=== PATIENT | female | born 2005 | race African-American/Black ===

== ENCOUNTER 2024-06-21 16:18 | Emergency (ER) | payer MEDICAID ==
[~2024-06-21] VITALS: Ht 157.5 cm; Wt 90.0 kg
[~2024-06-21 16:18] MED LIST: [UNRECOGNIZED DRUG - CODE] PO
[2024-06-21 16:34] VITALS: O2SAT 98
[2024-06-21 18:26] LABS: BASOPHILS % 1.4 % (0.0-2.0); EOSINOPHILS % 6.4 % (0.0-5.0); HEMATOCRIT. 43.3 % (36.0-48.0); HEMOGLOBIN. 14.4 g/dL (12.0-16.0); LYMPHOCYTES % 24.1 % (20.0-50.0); MEAN CORPUSCULAR HGB CONC 33.4 g/dL (31.0-37.0); MEAN PLATELET VOLUME 9.8 fl (7.4-10.4); MONOCYTES % 5.4 % (2.0-8.0); NEUTROPHILS % 62.7 % (40.0-76.0); PLATELET 225 x1000/uL (130-400); RED BLOOD CELL COUNT 5.34 mill/uL (4.2-5.4); RED CELL DISTRIBUTION WIDTH 14.3 % (11.6-14.6); WHITE BLOOD COUNT 13.2 x1000/uL (4.5-11.0)
[2024-06-21 18:40] LABS: CHLORIDE 108 mEq/L (98-107); POTASSIUM 4.1 mEq/L (3.5-5.1); SODIUM 140 mEq/L (136-145)
[2024-06-21 18:41] LABS: CALCIUM 9.3 mg/dL (8.7-10.4); CARBON DIOXIDE 26 mEq/L (21-32)
[2024-06-21 18:46] LABS: CREATININE 0.9 mg/dL (0.6-1.0); GLUCOSE 115 mg/dL (70-105); UREA NITROGEN BLOOD 14 mg/dL (9-23)
[2024-06-21 18:48] LABS: HCG SCREEN NEGATIVE; TROPONIN I HIGH SENSITIVITY 4 ng/L (3.0-34)
[2024-06-21 21:20] VITALS: BP 119/68; PULSE 72; RESP 16; TEMP 36.78072; O2SAT 100
== END 2024-06-21 21:20 | disposition home or self-care (01) ==
LOC: ER 16:18
DX: R55 Syncope and collapse (principal); R42 Dizziness and giddiness; R51.9 Headache, unspecified; J45.909 Unspecified asthma, uncomplicated
CPT/HCPCS: 36415; 80048; 84484; 84703; 85025; 93005; 99284